=== PATIENT | female | born 1990 | race Native Hawaiian/Other Pacific Islander ===

== ENCOUNTER 2018-07-12 19:22 | Emergency (ER) | payer BC ==
[2018-07-12 20:12] VITALS: BMI 33.6
[2018-07-12 21:15] LABS: SQUAMOUS EPITHIAL 5 /hpf (0-5); URINE BILIRUBIN NEGATIVE (NEGATIVE); URINE BLOOD 1+ (NEGATIVE); URINE CLARITY Clear (Clear); URINE COLOR Yellow (YELLOW); URINE GLUCOSE (UA) NORMAL (Normal); URINE PROTEIN NEGATIVE (NEGATIVE); URINE UROBILINOGEN NORMAL mg/dL (0.2-1.0)
[2018-07-12 21:16] LABS: URINE BACTERIA OCC (<OCC); URINE LEUKOCYTE ESTERASE TRACE Leu/uL (Negative)
--- NOTE | 2018-07-12 23:42 | OBHP ---
Datetime: 07/12/2018 20:07 IP Adm Impression: Term, intrauterine IP Chief Complaint Other: sent from Dr. Lewis's office IP Admit Plan: Observation/Evaluation Admit Comment, IP Provider: 28y/o at 37.2 weeks with LMP on October 22 with NANDO 07/29/18 (and per US in [facility]) presents to OB ED with increasing contractions and was sent from Dr. Lewis' s office. Patient states her cervix was 2-3 cm dilated around 4:30pm in the office. She walked to [facility] ([facility] afterwards and felt the contractions increasing in frequency. Denies vaginal bleeding ot her than after the cervical exam today. But endorses mucus plug loss every few days the past 2 weeks. Denies chest pain, shortness of breath, nausea, vomiting, diarrhea, fever, chills. OB hx: first baby, now a 1 year old male, at 36.6 weeks in 2016. She had 2 miscarriages in 2017. T he first was a set of tiwns at 13 weeks and the second was at 8 weeks. 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 (She moved to [place] from [place] just this past year). PMHx: Idalmis's thyroiditis, PCOS FHx: Uncles with DM, mom survived GA a few years ago. SocHx: Denies tobacco, EtOH and illicit drugs. 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 Tamie alaniz in [place] near [place] with her spouse. Meds: synthroid 125 mcg, PNV Allergies: NKDA physical exam and vitals: see above A/P: 28y/o at 37.2 weeks with contractions that began today -per Dr. Lewis's recommendations, monitor patient. Recheck cervix later and if labor progressing, admit. - labs faxed, significant for GBS+ - initiate abx once in active labor -f/u UA NST reactive UC's aboutl Q 3-4 mins and patient request to ambulate Will reassess in 1-2 hours after ambuation. case discussed with Dr. Jimmy Btuts PGY1 Extremities - PN: Normal Abdomen - PN: Normal Back - PN: Not Done Breast - PN: Not Done Lungs - PN: Normal Heart - PN: Normal Thyroid - PN: Normal Neurologic - PN: Not Done HEENT - PN: Not Done General - PN: Normal FHR - Baseline A Provider: 130 Membranes, Provider: Intact Contraction Comments Provider: Q3-4 mins Comments, ACOG Physical Exam: General: In no acute distress, however, will have to stop conversing a nd breathe during contractions IP Hx Assessment: The History has been Reviewed and is Current EGA AdmitDate IP: 37.4 Vital Signs Provider: Reviewed; Within Normal Limits IP Chief Complaint: Uterine contractions; Other NICHD Variability Prov Fetus A: Moderate 6-25bpm NICHD Decel Fetus A IP Provider: None Dilatation, Provider: 2 Effacement, Provider: 50 Station, Provider: -3 Genitourinary Exam: Not Done DTRs - PN: Not Done
--- NOTE | 2018-07-12 23:55 | OBDCSUM ---
Datetime: 07/12/2018 23:45 Discharged to, Provider: Home Follow up at, Provider: Dr. Lewis Disch Instr Activity: Normal activity Disch Instr Diet: Regular Discharge Instructions, Provider: Routine instructions given Discharge Diagnosis, Provider: False Labor - Undelivered Discharge Time: 07/12/2018 23:53 Follow up in weeks, Provider: Yudy appt or prn Disch Referrals: None Contraception discussed, Prov: No Disch Activity Restrictions: No exercising; No lifting; No sexual activity; Nothing in vagina - Inte rcourse, tampons, douche Discharge Comment, Provider: 28y/o at 37.2 weeks with LMP on October 22 with NANDO 07/29/18 (and per US in [employer]) presents to OB ED with increasing contractions and was sent from Dr. eLwis 's office. Patient states her cervix was 2-3 cm dilated around 4:30pm in the office. She walked to [facility] afterwards and felt the contractions increasing in frequency. Denies vaginal bleeding o ther than after the cervical exam today. But endorses mucus plug loss every few days the past 2 weeks . Denies chest pain, shortness of breath, nausea, vomiting, diarrhea, fever, chills. OB hx: first baby, now a 1 year old male, at 36.6 weeks in 2016. She had 2 miscarriages in 2017. T he first was a set of tiwns at 13 weeks and the second was at 8 weeks. 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 (She moved to [place] from [place] just this past year). PMHx: Idalmis's thyroiditis, PCOS FHx: Uncles with DM, mom survived RI a few years ago. SocHx: Denies tobacco, EtOH and illicit drugs. 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 Tamie alaniz in [place] near [place] with her spouse. Meds: synthroid 125 mcg, PNV Allergies: NKDA physical exam and vitals: see above A/P: 28y/o at 37.2 weeks with contractions that began today -per Dr. Lewis's recommendations, monitor patient. Recheck cervix later and if labor progressing, admit. - labs faxed, significant for GBS+ - initiate abx once in active labor -f/u UA NST reactive Pt ambulated for about 1 1/2 hours FHT's continue to be reassuring UC's Q 5-6 minutes and less stronger, per patient SVE essentially unchanged with cx still posterior Mild vaginal spotting Pt requesting to go home and states that she will return when cx's stronger and or LOF. Discharged home in S_S condition
[2018-07-13 04:25] VITALS: BP 110/77; PULSE 83; RESP 18; TEMP 99
== END 2018-07-13 | disposition home or self-care (01) ==
LOC: C.EROB 19:22
DX: O47.1 False labor at or after 37 completed weeks of gestation (principal); Z3A.37 37 weeks gestation of pregnancy